=== PATIENT | female | born 1985 | race Two or more races ===

== ENCOUNTER 2020-07-02 17:06 | Inpatient (IN) | payer BC ==
[~2020-07-02] VITALS: Ht 165.1 cm; Wt 68.9 kg
[2020-07-02] MEDS ORDERED: PRENATAL CAPLE1 EAC1 PO (18:26)
[2020-07-02] MEDS ORDERED: SYNTHROID75 MCG PO (18:26)
== END 2020-07-04 09:57 | disposition home or self-care (01) | DRG 819 ==
LOC: LDR 17:06
PROVIDERS: ADMIT Obstetrics & Gynecology Maternal & Fetal Medicine; ATTEND Obstetrics & Gynecology Maternal & Fetal Medicine
PROC: 0UVC7ZZ Restriction of Cervix, Via Natural or Artificial Opening (ICD-10-PCS; principal; 2020-07-02)
PROC: 4A1HXCZ Monitoring of Products of Conception, Cardiac Rate, External Approach (ICD-10-PCS; 2020-07-02)
DX: O34.32 Maternal care for cervical incompetence, second trimester (principal)

== ENCOUNTER 2020-07-24 16:17 | Inpatient (IN) | payer BC ==
[~2020-07-24] VITALS: Ht 165.1 cm; Wt 69.9 kg
[~2020-07-24 16:17] MED LIST: PRENATAL CAPLE1 EAC1 PO; SYNTHROID75 MCG PO
== END 2020-07-27 09:36 | disposition left against medical advice (07) | DRG 833 ==
LOC: LDR 16:17 → OB/GYN 07-26 08:42
PROVIDERS: ADMIT Obstetrics & Gynecology; ATTEND Obstetrics & Gynecology
PROC: 4A1HXFZ Monitoring of Products of Conception, Cardiac Rhythm, External Approach (ICD-10-PCS; principal; 2020-07-24)
DX: O34.32 Maternal care for cervical incompetence, second trimester (principal); Z20.828 Contact with and (suspected) exposure to other viral communicable diseases; Z3A.19 19 weeks gestation of pregnancy

== ENCOUNTER 2020-10-01 11:07 | Inpatient (IN) | payer BC ==
[~2020-10-01] VITALS: Ht 165.1 cm; Wt 76.7 kg
[2020-10-02] MEDS ORDERED: NIFEDIPINE ER60 MG PO (12:50)
== END 2020-10-02 13:20 | disposition home or self-care (01) | DRG 833 ==
LOC: LDR 11:07
PROVIDERS: ADMIT Obstetrics & Gynecology; ATTEND Obstetrics & Gynecology
PROC: 4A1HXFZ Monitoring of Products of Conception, Cardiac Rhythm, External Approach (ICD-10-PCS; principal; 2020-10-01)
PROC: 4A1HXFZ Monitoring of Products of Conception, Cardiac Rhythm, External Approach (ICD-10-PCS; 2020-10-02)
DX: O34.33 Maternal care for cervical incompetence, third trimester (principal); Z3A.29 29 weeks gestation of pregnancy

== ENCOUNTER 2020-10-29 13:58 | Outpatient (CLI) | payer BC ==
[~2020-10-29 13:58] MED LIST changes: +NIFEDIPINE ER60 MG PO
== END 2020-10-29 14:47 | disposition home or self-care (01) ==
LOC: NST 13:58
PROVIDERS: ATTEND Obstetrics & Gynecology Maternal & Fetal Medicine
DX: Z34.83 Encounter for supervision of other normal pregnancy, third trimester (principal)

== ENCOUNTER 2020-11-26 15:30 | Inpatient (IN) | payer BC ==
[~2020-11-26] VITALS: Ht 165.1 cm; Wt 81.6 kg
[2020-11-29] MEDS ORDERED: NIFEDIPINE ER30 MG (08:02)
[2020-11-29] MEDS ORDERED: INTEGRA F CAPS1 EAC1 (08:03)
== END 2020-11-30 12:02 | disposition home or self-care (01) | DRG 805 ==
LOC: LDR 11-28 18:47 → OB/GYN 11-28 18:47
PROVIDERS: ADMIT Obstetrics & Gynecology Maternal & Fetal Medicine; ATTEND Obstetrics & Gynecology Maternal & Fetal Medicine
PROC: 10E0XZZ Delivery of Products of Conception, External Approach (ICD-10-PCS; principal; 2020-11-28)
PROC: 0UQMXZZ Repair Vulva, External Approach (ICD-10-PCS; 2020-11-28)
PROC: 10907ZC Drainage of Amniotic Fluid, Therapeutic from Products of Conception, Via Natural or Artificial Opening (ICD-10-PCS; 2020-11-28)
PROC: 4A1HXFZ Monitoring of Products of Conception, Cardiac Rhythm, External Approach (ICD-10-PCS; 2020-11-28)
DX: O71.82 Other specified trauma to perineum and vulva (principal); O34.33 Maternal care for cervical incompetence, third trimester; Z37.0 Single live birth; O99.824 Streptococcus B carrier state complicating childbirth; Z3A.37 37 weeks gestation of pregnancy